=== PATIENT | female | born 1985 | race African-American/Black ===

== ENCOUNTER 2021-01-23 02:10 | Emergency (ER) | payer BC, OTHER ==
[2021-01-23] MEDS ORDERED: Acetaminophen 500 MG TAB ONE (02:31)
[2021-01-23] MEDS ORDERED: Ondansetron ODT 4 MG TAB ONE (02:52)
== END 2021-01-23 03:42 | disposition home or self-care (01) ==
LOC: EEVIPCON 02:10 → CSHERS 02:10
DX: S02.832A Fracture of medial orbital wall, left side, initial encounter for closed fracture (principal); S83.91XA Sprain of unspecified site of right knee, initial encounter; S00.83XA Contusion of other part of head, initial encounter; J45.909 Unspecified asthma, uncomplicated; F17.210 Nicotine dependence, cigarettes, uncomplicated; Y04.8XXA Assault by other bodily force, initial encounter
CPT/HCPCS: 70450; 70486; 72125; Q0162